=== PATIENT | male | born 1970 | race Caucasian/White ===

== ENCOUNTER 2020-09-16 08:26 | Outpatient (REF) | payer OTHER, SELFPAY ==
[2020-09-16 09:59] LABS: MANUAL DIFF FLAG NO
[2020-09-16 10:03] LABS: Eosinophils Absolute Auto 0.3 X10*3/uL (0.0-0.4); Eosinophils Percent Auto 7.1 % (0-4); Hemoglobin 13.6 g/dl (14.0-18.0); Imm Gran Abs Auto 0.01 X10*3/uL (0.00-0.03); Imm Gran Pct Auto 0.2 % (0.0-0.4); Lymphocytes Absolute Auto 1.2 X10*3/uL (1.2-4.9); Lymphocytes Percent Auto 28.5 % (20-40); Mean Corpuscular HGB Conc 33.2 g/dl (31.0-36.0); Mean Corpuscular Hemoglobin 33.2 pg (27.0-33.0); Monocytes Absolute Auto 0.4 X10*3/uL (0.1-1.2); Monocytes Percent Auto 10.6 % (2-11); Neutrophils Absolute Auto 2.1 X10*3/uL (2.0-8.3); Neutrophils Percent Auto 52.6 % (45-73); Platelet Count 343 X10*3/uL (160-400); Red Cell Distribution Width 12.8 % (11.0-16.0); White Blood Count 4.1 X10*3/uL (4.8-10.8)
[2020-09-16 10:34] LABS: Alanine Aminotransferase 20 U/L (0-40); Albumin Level 4.8 g/dL (3.5-5.0); Alkaline Phosphatase 87 U/L (39-117); Anion Gap 13 (12-20); Aspartate Amino Transferase 22 U/L (5-37); Bilirubin Total 0.5 mg/dL (0.0-1.0); Blood Urea Nitrogen 17 mg/dL (9-16); Calcium 9.5 mg/dL (8.4-10.2); Carbon Dioxide 29 mmol/L (22-29); Chloride 103 mmol/L (96-108); Cholesterol 259 mg/dL; Estimated Glomerular Filt Rate > 60; Glucose Fasting 98 mg/dL (60-99); HDL Cholesterol 75 mg/dL; LDL Cholesterol Calculated 163 mg/dl; Potassium 4.7 mmol/l (3.3-5.1); Sodium 140 mmol/L (135-145); Total Protein 7.4 g/dL (6.5-8.0); Triglycerides 109 mg/dL
[2020-09-16 10:58] LABS: Prostate Specific Antigen 0.41 ng/mL (<0.05-4.0)
[2020-09-16 11:06] LABS: Glucose Urine UA NEG (NEG); Leukocyte Esterase Urine NEG (NEG); Nitrite Urine NEG (NEG); PH 6.5 (5.0-8.0); Specific Gravity - Urine 1.025 (1.005-1.025); Urine Blood NEG (NEG); Urine Ketones NEG (NEG); Urine Protein NEG (NEG-TRACE)
[2020-09-16 11:24] LABS: Appearance Urine CLEAR; Color Urine YELLOW
== END 2020-09-16 08:27 | disposition home or self-care (01) ==
LOC: HO.LAB 08:26
PROVIDERS: PCP Internal Medicine; Visit Provider Internal Medicine
DX: Z00.00 Encounter for general adult medical examination without abnormal findings (principal); E78.2 Mixed hyperlipidemia; Z12.5 Encounter for screening for malignant neoplasm of prostate
CPT/HCPCS: 36415; 80053; 80061; 81003; 84153; 85025

== ENCOUNTER 2021-09-30 10:34 | Outpatient (REF) | payer OTHER, SELFPAY ==
[2021-09-30 10:39] LABS: MANUAL DIFF FLAG NO
[2021-09-30 11:03] LABS: Basophils Percent Auto 0.8 % (0-2); Eosinophils Absolute Auto 0.2 X10*3/uL (0.0-0.4); Eosinophils Percent Auto 4.1 % (0-4); Hemoglobin 13.4 g/dl (14.0-18.0); Imm Gran Abs Auto 0.01 X10*3/uL (0.00-0.03); Imm Gran Pct Auto 0.2 % (0.0-0.4); Lymphocytes Absolute Auto 1.2 X10*3/uL (1.2-4.9); Lymphocytes Percent Auto 22.7 % (20-40); Mean Corpuscular HGB Conc 33.5 g/dl (31.0-36.0); Mean Corpuscular Hemoglobin 33.6 pg (27.0-33.0); Mean Corpuscular Volume 100.3 fL (80.0-98.0); Mean Platelet Volume 10.3 fL (9.4-12.4); Monocytes Absolute Auto 0.5 X10*3/uL (0.1-1.2); Monocytes Percent Auto 9.9 % (2-11); Neutrophils Absolute Auto 3.3 x10*3/uL (2.0-8.3); Neutrophils Percent Auto 62.3 % (45-73); Platelet Count 309 X10*3/uL (160-400); Red Blood Count 3.99 X10*6/uL (4.60-5.80); Red Cell Distribution Width 12.9 % (11.0-16.0); White Blood Count 5.3 X10*3/uL (4.8-10.8)
[2021-09-30 11:07] LABS: Appearance Urine CLEAR; Color Urine YELLOW; Glucose Urine UA NEG (NEG); Leukocyte Esterase Urine NEG (NEG); Nitrite Urine NEG (NEG); Specific Gravity - Urine 1.025 (1.005-1.025); Urine Blood TRACE (NEG); Urine Ketones NEG (NEG); Urine Protein NEG (NEG-TRACE)
[2021-09-30 11:18] LABS: RBC Urine 0-2 /HPF (0); Uric Acid Crystals Urine TRACE /LPF; WBC Urine 0 /HPF (0-4)
[2021-09-30 11:40] LABS: Alanine Aminotransferase 19 U/L (0-40); Albumin Level 4.4 g/dL (3.5-5.0); Alkaline Phosphatase 83 U/L (39-117); Anion Gap 12 (12-20); Aspartate Amino Transferase 25 U/L (5-37); Bilirubin Total 0.3 mg/dL (0.0-1.0); Blood Urea Nitrogen 17 mg/dL (9-16); Calcium 9.6 mg/dL (8.4-10.2); Carbon Dioxide 26 mmol/L (22-29); Chloride 107 mmol/L (96-108); Cholesterol 228 mg/dL; Estimated Glomerular Filt Rate > 60; Glucose Fasting 96 mg/dL (60-99); HDL Cholesterol 68 mg/dL; LDL Cholesterol Calculated 136 mg/dl; Potassium 4.7 mmol/L (3.3-5.1); Sodium 140 mmol/L (135-145); Total Protein 7.1 g/dL (6.5-8.0); Triglycerides 122 mg/dL
[2021-09-30 12:18] LABS: PSA,Total (Free>4and<10) 0.36 ng/mL (0.00-4.00)
== END 2021-09-30 10:35 | disposition home or self-care (01) ==
LOC: HO.LNP 10:34
PROVIDERS: Visit Provider Internal Medicine
DX: Z00.00 Encounter for general adult medical examination without abnormal findings (principal); Z12.5 Encounter for screening for malignant neoplasm of prostate; E78.2 Mixed hyperlipidemia
CPT/HCPCS: 80053; 80061; 81001; 81003; 84153; 85025

== ENCOUNTER 2021-10-09 08:39 | Outpatient (REF) | payer OTHER, SELFPAY ==
--- NOTE | ~2021-10-09 | XR_ITS ---
EXAMINATION: XR FOOT, LEFT CLINICAL INFORMATION: Pain. COMPARISON: Left foot 05/04/2008 TECHNIQUE: AP, lateral, and oblique views of the left foot. FINDINGS: There is a intertarsal fusion with multiple screws traversing the tarsal bones. This is a new finding compared to previous exam 05/04/2008. The ankle mortise, subtalar joint, tarsonavicular and navicular distal tarsal joint space is maintained normal. A small retrocalcaneal enthesophyte is seen. No abnormal joint effusion. XR/XR foot LT min 3V IMPRESSION: New intertarsal fusion with multiple (7) screws. Small retrocalcaneal and calcaneal heel enthesophyte.
== END 2021-10-09 08:40 | disposition home or self-care (01) ==
LOC: HO.XRAY 08:39
PROVIDERS: PCP Internal Medicine; Visit Provider Internal Medicine
DX: M79.672 Pain in left foot (principal)
CPT/HCPCS: 73630

== ENCOUNTER 2022-09-29 11:28 | Outpatient (REF) | payer OTHER, SELFPAY ==
[2022-09-29 11:31] LABS: MANUAL DIFF FLAG NO
[2022-09-29 12:03] LABS: Basophils Percent Auto 0.8 % (0-2); Eosinophils Absolute Auto 0.2 X10*3/uL (0.0-0.4); Eosinophils Percent Auto 4.1 % (0-4); Hematocrit 38.6 % (42.0-52.0); Imm Gran Abs Auto 0.03 X10*3/uL (0.00-0.03); Imm Gran Pct Auto 0.6 % (0.0-0.4); Lymphocytes Absolute Auto 1.1 X10*3/uL (1.2-4.9); Lymphocytes Percent Auto 21.1 % (20-40); Mean Corpuscular HGB Conc 33.7 g/dl (31.0-36.0); Mean Corpuscular Hemoglobin 33.7 pg (27.0-33.0); Mean Platelet Volume 10.5 fL (9.4-12.4); Monocytes Absolute Auto 0.6 X10*3/uL (0.1-1.2); Monocytes Percent Auto 11.1 % (2-11); Neutrophils Absolute Auto 3.3 x10*3/uL (2.0-8.3); Neutrophils Percent Auto 62.3 % (45-73); Platelet Count 315 X10*3/uL (160-400); Red Blood Count 3.86 X10*6/uL (4.60-5.80); White Blood Count 5.3 X10*3/uL (4.8-10.8)
[2022-09-29 12:11] LABS: Appearance Urine Clear; Color Urine Yellow; Glucose Urine UA Negative (Negative); Leukocyte Esterase Urine Negative (Negative); Nitrite Urine Negative (Negative); PH 5.5 (5.0-9.0); Specific Gravity - Urine 1.025 (1.005-1.025); Urine Blood Negative (Negative); Urine Ketones Negative (Negative); Urine Protein Negative (Neg-Trace)
[2022-09-29 12:34] LABS: Alanine Aminotransferase 26 U/L (0-40); Albumin Level 4.5 g/dL (3.5-5.0); Alkaline Phosphatase 87 U/L (39-117); Anion Gap 12 (12-20); Aspartate Amino Transferase 32 U/L (5-37); Bilirubin Total 0.3 mg/dL (0.0-1.0); Blood Urea Nitrogen 15 mg/dL (9-16); Calcium 9.6 mg/dL (8.4-10.2); Carbon Dioxide 25 mmol/L (22-29); Chloride 106 mmol/L (96-108); Cholesterol 232 mg/dL; Estimated Glomerular Filt Rate > 60; Glucose Fasting 98 mg/dL (60-99); HDL Cholesterol 74 mg/dL; LDL Cholesterol Calculated 133 mg/dl; PSA,Total (Free>4and<10) 0.59 ng/mL (0.00-4.00); Potassium 4.3 mmol/L (3.3-5.1); Sodium 139 mmol/L (135-145); Total Protein 6.9 g/dL (6.5-8.0); Triglycerides 125 mg/dL
== END 2022-09-29 11:29 | disposition home or self-care (01) ==
LOC: HO.LNP 11:28
PROVIDERS: Visit Provider Internal Medicine
DX: Z00.00 Encounter for general adult medical examination without abnormal findings (principal); Z12.5 Encounter for screening for malignant neoplasm of prostate; E78.2 Mixed hyperlipidemia
CPT/HCPCS: 80053; 80061; 81003; 84153; 85025

== ENCOUNTER 2023-09-30 10:57 | Outpatient (REF) | payer OTHER, SELFPAY ==
[2023-09-30 11:01] LABS: MANUAL DIFF FLAG NO
[2023-09-30 11:31] LABS: Basophils Absolute Auto 0.1 X10*3/uL (0.0-0.2); Basophils Percent Auto 1.1 % (0-2); Eosinophils Absolute Auto 0.2 X10*3/uL (0.0-0.4); Eosinophils Percent Auto 3.4 % (0-4); Hematocrit 41.3 % (42.0-52.0); Hemoglobin 13.8 g/dl (14.0-18.0); Imm Gran Abs Auto 0.01 X10*3/uL (0.00-0.03); Imm Gran Pct Auto 0.2 % (0.0-0.4); Lymphocytes Absolute Auto 1.4 X10*3/uL (1.2-4.9); Lymphocytes Percent Auto 26.5 % (20-40); Mean Corpuscular HGB Conc 33.4 g/dl (31.0-36.0); Mean Corpuscular Hemoglobin 34.1 pg (27.0-33.0); Mean Platelet Volume 10.5 fL (9.4-12.4); Monocytes Absolute Auto 0.6 X10*3/uL (0.1-1.2); Monocytes Percent Auto 11.4 % (2-11); Neutrophils Absolute Auto 3.1 x10*3/uL (2.0-8.3); Neutrophils Percent Auto 57.4 % (45-73); Platelet Count 291 X10*3/uL (160-400); Red Blood Count 4.05 X10*6/uL (4.60-5.80); White Blood Count 5.3 X10*3/uL (4.8-10.8)
[2023-09-30 11:37] LABS: Appearance Urine Clear; Color Urine Yellow; Glucose Urine UA Negative (Negative); Leukocyte Esterase Urine Negative (Negative); Nitrite Urine Negative (Negative); PH 5.5 (5.0-9.0); Specific Gravity - Urine >= 1.030 (1.005-1.025); UMIC TRIGGER UACC YES; Urine Blood Negative (Negative); Urine Ketones Negative (Negative); Urine Protein 30 (1+) mg/dL (Neg-Trace)
[2023-09-30 11:42] LABS: Alanine Aminotransferase 22 U/L (0-40); Albumin Level 4.7 g/dL (3.5-5.0); Alkaline Phosphatase 64 U/L (39-117); Anion Gap 12 (12-20); Aspartate Amino Transferase 29 U/L (5-37); Bilirubin Total 0.4 mg/dL (0.0-1.0); Blood Urea Nitrogen 17 mg/dL (9-16); Calcium 9.7 mg/dL (8.4-10.2); Carbon Dioxide 29 mmol/L (22-29); Chloride 102 mmol/L (96-108); Cholesterol 283 mg/dL (<200); Estimated Glomerular Filt Rate > 60; Glucose Fasting 86 mg/dL (60-99); HDL Cholesterol 67 mg/dL (>40); LDL Cholesterol Calculated 176 mg/dL (<100); Potassium 4.4 mmol/L (3.3-5.1); Sodium 139 mmol/L (135-145); Total Protein 7.7 g/dL (6.5-8.0); Triglycerides 204 mg/dL (<150)
[2023-09-30 11:43] LABS: Bacteria Urine None Seen (None Seen); Hyaline Casts Urine 0-2 /LPF (0-2); RBC Urine 0-2 /HPF (0-2); Squamous Epithelial Cell Urine 0-2 /HPF (0-2); WBC Urine 0-5 /HPF (0-5)
[2023-09-30 11:59] LABS: Prostate Specific Antigen 0.35 ng/mL (<0.05-4.0)
== END 2023-09-30 10:58 | disposition home or self-care (01) ==
LOC: HO.LNP 10:57
PROVIDERS: Visit Provider Internal Medicine
DX: Z00.00 Encounter for general adult medical examination without abnormal findings (principal); Z12.5 Encounter for screening for malignant neoplasm of prostate; E78.2 Mixed hyperlipidemia
CPT/HCPCS: 80053; 80061; 81001; 84153; 85025

== ENCOUNTER 2023-12-06 11:24 | Outpatient (REF) | payer OTHER, SELFPAY ==
[2023-12-06 12:29] LABS: TSH reflex Free T4 22.56 uIU/mL (0.32-4.0)
[2023-12-06 13:03] LABS: Free T4 (Free Thyroxine) 0.61 ng/dL (0.71-1.85)
== END 2023-12-06 11:25 | disposition home or self-care (01) ==
LOC: HO.LNP 11:24
PROVIDERS: Visit Provider Internal Medicine
DX: E03.9 Hypothyroidism, unspecified (principal)
CPT/HCPCS: 84439; 84443

== ENCOUNTER 2024-01-06 11:11 | Outpatient (REF) | payer OTHER, SELFPAY ==
[2024-01-06 12:23] LABS: Free T4 (Free Thyroxine) 0.74 ng/dL (0.71-1.85)
== END 2024-01-06 11:12 | disposition home or self-care (01) ==
LOC: HO.LNP 11:11
PROVIDERS: Visit Provider Internal Medicine
DX: E03.9 Hypothyroidism, unspecified (principal)
CPT/HCPCS: 84439; 84443

== ENCOUNTER 2024-02-11 11:35 | Outpatient (REF) | payer OTHER, SELFPAY ==
[2024-02-11 14:02] LABS: TSH reflex Free T4 7.32 uIU/mL (0.32-4.0)
[2024-02-11 14:35] LABS: Free T4 (Free Thyroxine) 0.96 ng/dL (0.71-1.85)
== END 2024-02-11 11:36 | disposition home or self-care (01) ==
LOC: HO.LNP 11:35
PROVIDERS: Visit Provider Internal Medicine
DX: E03.9 Hypothyroidism, unspecified (principal)
CPT/HCPCS: 84439; 84443

== ENCOUNTER 2024-03-20 11:13 | Outpatient (REF) | payer OTHER, SELFPAY ==
[2024-03-20 12:16] LABS: TSH reflex Free T4 1.72 uIU/mL (0.32-4.0)
== END 2024-03-20 11:14 | disposition home or self-care (01) ==
LOC: HO.LNP 11:13
PROVIDERS: Visit Provider Internal Medicine
DX: E03.9 Hypothyroidism, unspecified (principal)
CPT/HCPCS: 84443

== ENCOUNTER 2024-04-10 11:07 | Outpatient (REF) | payer OTHER, SELFPAY ==
[2024-04-10 12:09] LABS: Cholesterol 212 mg/dL (<200); HDL Cholesterol 72 mg/dL (>40); LDL Cholesterol Calculated 114 mg/dL (<100); Triglycerides 134 mg/dL (<150)
== END 2024-04-10 11:08 | disposition home or self-care (01) ==
LOC: HO.LNP 11:07
PROVIDERS: Visit Provider Internal Medicine
DX: E78.2 Mixed hyperlipidemia (principal)
CPT/HCPCS: 80061

== ENCOUNTER 2024-09-17 00:50 | Emergency (ER) | payer OTHER, SELFPAY ==
--- NOTE | 2024-09-17 | ECG_ITS ---
Test Reason : FALL Blood Pressure : */* mmHG Vent. Rate : 83 BPM Atrial Rate : 83 BPM P-R Int : 148 ms QRS Dur : 90 ms QT Int : 360 ms P-R-T Axes : 36 64 24 degrees QTcB Int : 423 ms Normal sinus rhythm Normal ECG When compared with ECG of 04-May-2008 03:47, No significant change was found Referred By: Generic ED Physician Electronically Signed By: JOSE SNELL
--- NOTE | ~2024-09-17 | CT_ITS ---
CLINICAL HISTORY: fall with + head strike CT head without contrast Comparison: Head CT from 05/04/2008 Findings: Gas is associated with right frontal scalp defect. Soft tissue swelling hematoma predominately in the right frontal convexity. No underlying acute frontal bone fracture. Mild right periorbital soft tissue swelling is preseptal. No acute intracranial hemorrhage. No midline shift or hydrocephalus. Mild volume loss is generalized and mildly greater expected for age. No large arterial territorial infarction by CT. Mild white matter lesions as can be associated with small-vessel ischemic disease. Air-fluid levels of the paranasal sinuses including partially imaged maxillary sinuses. Trace mastoid effusions. IMPRESSION: 1. Soft tissue swelling, scalp hematoma, scalp defect, including of the right frontal convexity. No acute frontal bone fracture. 2. No acute intracranial hemorrhage. 3. Mild volume loss is generalized and greater than expected for age. 4. Air-fluid levels of the imaged maxillary sinuses as can be associated with sinusitis. Please refer to separate report for CT of the face. This document has been electronically signed by: Raji Perea MD on 09/17/2024 02:12:44
--- NOTE | ~2024-09-17 | CT_ITS ---
CLINICAL HISTORY: fall with + head strike CT cervical spine without contrast Comparison: CT of the cervical spine from 05/04/2008 Findings: Ligament calcifications are multifocal with likely old osteophyte fractures including anterior inferior aspect of the C3 and C4, without significant change from 2008. New anterior inferior osteophyte fracture appears acute C6. Otherwise, no acute fracture cervical spine. Marked reversal cervical lordosis. Mild anterolisthesis at C2-C3. Facet arthropathy is multifocal. Disc osteophyte complexes with mild spinal canal stenosis from C4-C5 to C6-C7. Multilevel [id number]-sy-[id number] foraminal narrowing including C3-C4 to C6-C7. Sclerosis of the T1 appears non aggressive and likely due to bone island. Mild soft tissue swelling anterior to C6. Subcutaneous edema is noted. Mild scarring and motion of the imaged lung apices. IMPRESSION: 1. Small osteophyte fracture at anterior inferior margin of the C6. Otherwise, no acute fracture of the cervical spine. 2. Reversal cervical lordosis. 3. Multifocal spinal stenosis at degenerative changes markedly greater than expected for age; with multifocal spinal stenosis, including foraminal narrowing. This document has been electronically signed by: Raji Perea MD on 09/17/2024 02:06:10
--- NOTE | ~2024-09-17 | CT_ITS ---
CLINICAL HISTORY: fall with + head strike CT maxillofacial without contrast Comparison: Head CT from same day. Findings: Right-sided periorbital soft tissue swelling is mild and preseptal. No acute intraconal stranding within either orbit in this noncontrast study. Air-fluid levels of the bilateral maxillary sinuses with a displaced acute wall fracture. Mild medial wall fracture of the right orbit appears old. Mucosal thickening of the paranasal sinuses is multifocal. No displaced mandible fracture. No dislocation of the imaged temporomandibular joints. Trace bilateral mastoid effusions. Please refer to CT of the head for included intracranial volume loss. Please refer to CT of the cervical spine for included C6 osteophyte fracture. IMPRESSION: 1. Air-fluid levels of the maxillary sinuses as can be associated with sinusitis. 2. Right-sided periorbital soft tissue swelling appears preseptal. This document has been electronically signed by: Raji Perea MD on 09/17/2024 02:13:58
[2024-09-17 00:56] VITALS: BP 135/85; PULSE 98; RESP 20; TEMP 36.8; O2SAT 98; BMI 25.1
[2024-09-17 02:18] LABS: MANUAL DIFF FLAG NO
[2024-09-17 02:20] LABS: Basophils Percent Auto 0.4 % (0-2); Eosinophils Absolute Auto 0.1 X10*3/uL (0.0-0.4); Eosinophils Percent Auto 0.9 % (0-4); Hematocrit 37.6 % (42.0-52.0); Hemoglobin 13.2 g/dl (14.0-18.0); Imm Gran Abs Auto 0.04 X10*3/uL (0.00-0.03); Imm Gran Pct Auto 0.4 % (0.0-0.4); Lymphocytes Absolute Auto 1.1 X10*3/uL (1.2-4.9); Lymphocytes Percent Auto 10.2 % (20-40); Mean Corpuscular HGB Conc 35.1 g/dl (31.0-36.0); Mean Corpuscular Hemoglobin 33.8 pg (27.0-33.0); Mean Corpuscular Volume 96.2 fL (80.0-98.0); Mean Platelet Volume 9.5 fL (9.4-12.4); Monocytes Absolute Auto 0.7 X10*3/uL (0.1-1.2); Monocytes Percent Auto 6.4 % (2-11); Neutrophils Absolute Auto 9.1 x10*3/uL (2.0-8.3); Neutrophils Percent Auto 81.7 % (45-73); Platelet Count 303 X10*3/uL (160-400); Red Blood Count 3.91 X10*6/uL (4.60-5.80); Red Cell Distribution Width 13.1 % (11.0-16.0); White Blood Count 11.1 X10*3/uL (4.8-10.8)
[2024-09-17 02:34] LABS: Ethanol 255 mg/dL
[2024-09-17 02:35] LABS: INTERNATIONAL NORM RATIO 0.8 (0.9-1.1); Prothrombin Time 9.7 SEC (10.9-12.4)
[2024-09-17 02:36] LABS: Alanine Aminotransferase 37 U/L (0-40); Albumin Level 4.5 g/dL (3.5-5.0); Alkaline Phosphatase 93 U/L (39-117); Anion Gap 15 (12-20); Aspartate Amino Transferase 45 U/L (5-37); Bilirubin Total 0.2 mg/dL (0.0-1.0); Blood Urea Nitrogen 18 mg/dL (9-16); Calcium 9.4 mg/dL (8.4-10.2); Carbon Dioxide 24 mmol/L (22-29); Chloride 111 mmol/L (96-108); Estimated Glomerular Filt Rate > 60; Glucose Random 93 mg/dL (60-115); Potassium 4.1 mmol/L (3.3-5.1); Sodium 146 mmol/L (135-145); Total Protein 7.5 g/dL (6.5-8.0)
[2024-09-17] MEDS: traMADoL HCL 50 MG TABLET PO (03:54)
[2024-09-17 04:08] LABS: Troponin-I High Sensitivity < 2.7 ng/L (<3.5-35.0)
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
[2024-09-17 06:39] VITALS: BP 138/78; PULSE 87; RESP 18; TEMP 36.9; O2SAT 98
[2024-09-17 06:56] VITALS: BP 138/78; PULSE 87; RESP 18; TEMP 36.9; O2SAT 98
[2024-09-17] MEDS: Lidocaine HCl 1%/Epi 1:100,000 10 ML VIAL 30 ML INFILTRATI (07:03)
[2024-09-17] MEDS: Lidocaine HCl 1 % 10 ML VIAL 30 ML INFILTRATI (07:03)
== END 2024-09-17 07:06 | disposition home or self-care (01) ==
PROVIDERS: Emergency Provider Emergency Medicine; PCP Internal Medicine
DX: S01.91XA Laceration without foreign body of unspecified part of head, initial encounter (principal); S61.411A Laceration without foreign body of right hand, initial encounter; R51.9 Headache, unspecified; M54.2 Cervicalgia; W01.10XA Fall on same level from slipping, tripping and stumbling with subsequent striking against unspecified object, initial encounter; Y93.89 Activity, other specified; Y92.89 Other specified places as the place of occurrence of the external cause; Y99.8 Other external cause status; Z79.899 Other long term (current) drug therapy; Z51.81 Encounter for therapeutic drug level monitoring
CPT/HCPCS: 12042; 12054; 36415; 70450; 70486; 72125; 80053; 80307; 84484; 85025; 85610; 93005; 99284; J2003; J2004

== ENCOUNTER → 2024-09-17 01:09 | Outpatient (BNV) | payer OTHER, SELFPAY | PROVIDERS: PCP Internal Medicine; Visit Provider Radiology Neuroradiology | DX: M48.02 Spinal stenosis, cervical region (principal); M50.30 Other cervical disc degeneration, unspecified cervical region; J01.00 Acute maxillary sinusitis, unspecified; H05.221 Edema of right orbit; S00.03XA Contusion of scalp, initial encounter | CPT/HCPCS: 70450; 70486; 72125 ==

== ENCOUNTER → 2024-09-17 03:51 | Outpatient (BNV) | payer OTHER, SELFPAY | PROVIDERS: Emergency Provider Emergency Medicine; PCP Internal Medicine; Visit Provider Internal Medicine | DX: Z03.89 Encounter for observation for other suspected diseases and conditions ruled out (principal) | CPT/HCPCS: 93010 ==

== ENCOUNTER 2024-10-02 07:00 | Outpatient (REF) | payer OTHER, SELFPAY ==
[2024-10-02 10:23] LABS: MANUAL DIFF FLAG NO
[2024-10-02 10:42] LABS: Eosinophils Absolute Auto 0.3 X10*3/uL (0.0-0.4); Eosinophils Percent Auto 7.2 % (0-4); Hematocrit 37.3 % (42.0-52.0); Hemoglobin 12.4 g/dl (14.0-18.0); Imm Gran Abs Auto 0.01 X10*3/uL (0.00-0.03); Imm Gran Pct Auto 0.3 % (0.0-0.4); Lymphocytes Absolute Auto 1.3 X10*3/uL (1.2-4.9); Lymphocytes Percent Auto 33.5 % (20-40); Mean Corpuscular HGB Conc 33.2 g/dl (31.0-36.0); Mean Corpuscular Hemoglobin 33.4 pg (27.0-33.0); Mean Corpuscular Volume 100.5 fL (80.0-98.0); Mean Platelet Volume 10.1 fL (9.4-12.4); Monocytes Absolute Auto 0.5 X10*3/uL (0.1-1.2); Monocytes Percent Auto 11.9 % (2-11); Neutrophils Absolute Auto 1.8 x10*3/uL (2.0-8.3); Neutrophils Percent Auto 46.1 % (45-73); Platelet Count 361 X10*3/uL (160-400); Red Blood Count 3.71 X10*6/uL (4.60-5.80); Red Cell Distribution Width 13.4 % (11.0-16.0); White Blood Count 3.9 X10*3/uL (4.8-10.8)
[2024-10-02 10:44] LABS: Appearance Urine Clear; Color Urine Yellow; Glucose Urine UA Negative (Negative); Leukocyte Esterase Urine Negative (Negative); Nitrite Urine Negative (Negative); PH 5.5 (5.0-9.0); Specific Gravity - Urine 1.025 (1.005-1.025); Urine Blood Negative (Negative); Urine Ketones Trace mg/dL (Negative); Urine Protein Negative (Neg-Trace)
[2024-10-02 11:18] LABS: Alanine Aminotransferase 26 U/L (0-40); Albumin Level 4.2 g/dL (3.5-5.0); Alkaline Phosphatase 107 U/L (39-117); Anion Gap 9 (12-20); Aspartate Amino Transferase 28 U/L (5-37); Bilirubin Total 0.2 mg/dL (0.0-1.0); Blood Urea Nitrogen 14 mg/dL (9-16); Calcium 9.6 mg/dL (8.4-10.2); Carbon Dioxide 24 mmol/L (22-29); Chloride 111 mmol/L (96-108); Cholesterol 212 mg/dL (<200); Estimated Glomerular Filt Rate > 60; Glucose Fasting 84 mg/dL (60-99); HDL Cholesterol 62 mg/dL (>40); LDL Cholesterol Calculated 125 mg/dL (<100); Potassium 4.4 mmol/L (3.3-5.1); Sodium 140 mmol/L (135-145); TSH reflex Free T4 5.36 uIU/mL (0.32-4.0); Total Protein 7.2 g/dL (6.5-8.0); Triglycerides 127 mg/dL (<150)
[2024-10-02 11:20] LABS: PSA,Total (Free>4and<10) 0.43 ng/mL (0.00-4.00)
--- OUTSIDE RECORDS SUMMARY | 2024-10-02 14:58 | XMS_ITS ---
Author Organization García Mera MD Address [address] [place], [place] [id number] Care Team Providers Care Optical Effects Camera Operator Name Role Phone García Mera Primary Care Provider [phone] Results Component Value Reference Range Notes Complete Blood Count Auto Di ff (Not yet reviewed by provider) Interpretation: Performing Lab:[facility], [address] [place] [id number] Notes/Report: White Blood Count 3.9 4.8-10.8 X10*3/uL Red Blood Count 3.71 4.60-5.80 X10*6/uL Hemoglobin 12.4 14.0-18.0 g/dl Hematocrit 37.3 42.0-52.0 % Mean Corpuscular Volume 100.5 80.0-98.0 fL Mean Corpuscular Hemoglobin 33.4 27.0-33.0 pg Mean Corpuscular HGB Conc 33.2 31.0-36.0 g/dl Red Cell Distribution Width 13.4 11.0-16.0 % Platelet Count 361 160-400 X10*3/uL Mean Platelet Volume 10.1 9.4-12.4 fL Neutrophils Percent Auto 46.1 45-73 % Imm Gran Pct Auto 0.3 0.0-0.4 % Lymphocytes Percent Auto 33.5 20-40 % Monocytes Percent Auto 11.9 2-11 % Eosinophils Percent Auto 7.2 0-4 % Basophils Percent Auto 1.0 0-2 % NRBC Pct Auto 0.0 0.0-0.2 /100WBC Neutrophils Absolute Auto 1.8 2.0-8.3 x10*3/u L Imm Gran Abs Auto 0.01 0.00-0.03 X10*3/uL Lymphocytes Absolute Auto 1.3 1.2-4.9 X10*3/u L Monocytes Absolute Auto 0.5 0.1-1.2 X10*3/uL Eosinophils Absolute Auto 0.3 0.0-0.4 X10*3/u L Basophils Absolute Auto 0.0 0.0-0.2 X10*3/uL NRBC Abs Auto 0.000 0.0-0.012 X10*3/uL Comprehensive [place]. Panel Fa st (Not yet reviewed by provider) Interpretation: Performing Lab:[facility], [address] [place] [phone] Notes/Report: Sodium 140 135-145 mmol/L Potassium 4.4 3.3-5.1 mmol/L Chloride 111 96-108 mmol/L Carbon Dioxide 24 22-29 mmol/L Anion Gap 9 12-20 Blood Urea Nitrogen 14 9-16 mg/dL Creatinine 0.96 0.5-1.4 mg/dL Estimated Glomerular Filt Rate > 60 Chronic Kidney Disease: Estimated GFR < 60 mL/min/1.73m2 Severe Kidney Disease: Estimated GFR < 15 mL/min/1.73m2 Glucose Fasting 84 60-99 mg/dL Calcium 9.6 8.4-10.2 mg/dL Bilirubin Total 0.2 0.0-1.0 mg/dL Aspartate Amino Transferase 28 5-37 U/L Alanine Aminotransferase 26 0-40 U/L Total Protein 7.2 6.5-8.0 g/dL Albumin Level 4.2 3.5-5.0 g/dL Alkaline Phosphatase 107 39-117 U/L Lipid Panel (Not yet review ed by provider) Interpretation: Performing Lab:[facility], [address] [place] [phone] Notes/Report: Triglycerides 127 <150 mg/dL Desirable Triglyceride: less than 150 mg/dL Borderline High Triglyceride 150-199 mg/dL High Triglyceride: 200-499 mg/dL Very High Triglyceride: greater than or equal to 5OO mg/dL Cholesterol 212 <200 mg/dL Desirable Cholesterol: less than 200 mg/dL Borderline High Cholesterol: 200-239 mg/dL High Cholesterol: greater than 239 mg/dL LDL Cholesterol Calculated 125 <100 mg/dL Desirable LDL: less than 100 mg/dL Near Optimal/Above Optimal LDL: 110-129 mg/dL Borderline High LDL: 130-159 mg/dL High LDL: 160-189 mg/dL Very High LDL: greater than or equal to 190 mg/dL HDL Cholesterol 62 >40 mg/dL Desirable HDL: greater than 40 mg/dL Note: This HDL assay may give artificially low results in patients with liver disease. PSA,Total (Free>4and<10) (No t yet reviewed by provider) Interpretation: Performing Lab:[address] [phone] Notes/Report: PSA,Total (Free>4and<10) 0.43 0.00-4.00 ng/mL A Free PSA was not performed: The percentage of Free PSA can be used to enhance the differentiation of prostate cancer from benign prostatic disease in subjects whose PSA levels are between 4.0 and 10.0 ng/mL. For subjects whose PSA levels are below 4.0 or above 10.0 ng/mL, the risk of prostate cancer is determined on the basis of the PSA alone. Therefore the % Free PSA is recommended only for those subjects whose PSA levels are between 4.0 and 10.0 ng/mL. PSA methodology: Hannah Alinity i Chemiluminescent Microparticle Immunoassay (CMIA) TSH reflex Free T4 (Not yet reviewed by provider) Interpretation: Performing Lab:[address] [phone] Notes/Report: TSH reflex Free T4 5.36 0.32-4.0 uIU/mL REASON FOR VISIT FASTING LABS Encounters Encounter Location Date Provider Diagnosis García Mera MD [address] [place] [address] [address] [place], [place] [phone] 10/02/2024 García Mera Blood tests for routine general physical examination Z00.00 ; Mixed hyperlipidemia E78.2 and Acquired hypothyroidism E03.9 Assessments Encounter Date Diagnosis (ICD Code) Assessment Notes Treatment Notes Treatment Clinical Notes Section Notes 10/02/2024 Blood tests for routine general physical examination (ICD-10 - Z00.00) 10/02/2024 Mixed hyperlipidemia (ICD-10 - E78.2) 10/02/2024 Acquired hypothyroidism (ICD-10 - E03.9) Plan Of Treatment Pending Test Test Name Order Date Complete Blood Count Auto Diff 5 Comprehensive [place]. Panel Fast Lipid Panel 10/02/2024 PSA,Total (Free>4and<10) 10/02/2024 TSH reflex Free T4 10/02/2024 UA ClnCatch+Micro w/rflx Cult 10/02/2024 Next Appt Details Provider Name:García Harry ier, 10/09/2024 10:30:00 AM, [address], [address], [place], [place], [phone], Progress Notes * Prakash SHEEHANDOB:[birth year] (53 yo M)Acc No.[id number]:10/02/2024 Progress Note Patient:?Prakash SHEEHAN Provider:?García Mera MD :1970???Age:53 Y???Sex:Male Jamar e:10/02/2024 Address:[address] [place], [place] [id number] Subjective: * Chief Complaints: * ???1. FASTING LABS. * Medical History:? Objective: * Vitals:? Assessment: * Assessment: 1.?Blood tests for routine g eneral physical examination - Z00.00 (Primary)???2.?Mixed hyperlipidemia - E78.2???3.?Acquired hypothyroidism - E03.9??? Plan: * Treatment: 2.?Mixed hyperlipidemia?LAB: Complete Blood Count Auto Diff (Collection Date & Time - 10/02/2024 07:00 AM) ?LAB: Comprehensive [place]. Panel Fast (Collection Date & Time - 10/02/2024 07:00 AM) ?LAB: Lipid Panel (Collection Date & Time - 10/02/2024 07:00 AM) ?LAB: PSA,Total (Free>4and<10) (Collection Date & Time - 10/02/2024 07:00 AM) ?LAB: TSH reflex Free T4 (Collection Date & Time - 10/02/2024 07:00 AM) ?LAB: UA ClnCatch+Micro w/rflx Cult 3.?Acquired hypothyroidism?LAB: Complete Blood Count Auto Diff (Collection Date & Time - 10/02/2024 07:00 AM) ?LAB: Comprehensive [place]. Panel Fast (Collection Date & Time - 10/02/2024 07:00 AM) ?LAB: Lipid Panel (Collection Date & Time - 10/02/2024 07:00 AM) ?LAB: PSA,Total (Free>4and<10) (Collection Date & Time - 10/02/2024 07:00 AM) ?LAB: TSH reflex Free T4 (Collection Date & Time - 10/02/2024 07:00 AM) ?LAB: UA ClnCatch+Micro w/rflx Cult * Procedure Codes:?45898 VENIP UNCT, ROUTINE* * * The named appointment provid er may or may not be the originator of this progress note, and it is not deemed complete until electronically signed by the appointment provider. Sign off status: Pending * Provider:?García Mera MD Date:?0 10/02/2024 Generated for Rema schwartz/Marisel/eTransmitting on:?10/02/2024 02:58 PM EST
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
--- OUTSIDE RECORDS SUMMARY | 2024-10-02 14:58 | XMS_ITS | Patient Health Record ---
Author Organization García Mera MD Address [address] [place], [place] [id number] Care Team Providers Care Principal Technologist Name Role Phone García Mera Primary Care Provider [phone] Allergies No Known Allergies Results Component Value Reference Range Notes TSH reflex Free T4 Reviewed date:12/09/2023 10:25:47 AM Interpretation:eduardo car 12-09-2023 Performing Lab:[facility], [address] [place] [phone] Notes/Report: TSH reflex Free T4 22.56 0.32-4.0 uIU/mL TSH reflex Free T4 Reviewed date:01/13/2024 10:48:38 AM Interpretation:eduardo car 01-13-2024 Performing Lab:[facility], [address] [place] [phone] Notes/Report: TSH reflex Free T4 11.70 0.32-4.0 uIU/mL TSH reflex Free T4 Reviewed date:02/18/2024 12:27:37 PM Interpretation:PREM 02/17 Performing Lab:[facility], [address] [place] [phone] Notes/Report: TSH reflex Free T4 7.32 0.32-4.0 uIU/mL TSH reflex Free T4 Reviewed date:03/20/2024 12:38:32 PM Interpretation: Performing Lab:[facility], [address] [place] [phone] Notes/Report: TSH reflex Free T4 1.72 0.32-4.0 uIU/mL Lipid Panel Reviewed date:04/10/2024 02:06:43 PM Interpretation: Performing Lab:[facility], [address] [place] [phone] Notes/Report: Triglycerides 134 <150 mg/dL Desirable Triglyceride: less than 150 mg/dL Borderline High Triglyceride 150-199 mg/dL High Triglyceride: 200-499 mg/dL Very High Triglyceride: greater than or equal to 5OO mg/dL Cholesterol 212 <200 mg/dL Desirable Cholesterol: less than 200 mg/dL Borderline High Cholesterol: 200-239 mg/dL High Cholesterol: greater than 239 mg/dL LDL Cholesterol Calculated 114 <100 mg/dL Desirable LDL: less than 100 mg/dL Near Optimal/Above Optimal LDL: 110-129 mg/dL Borderline High LDL: 130-159 mg/dL High LDL: 160-189 mg/dL Very High LDL: greater than or equal to 190 mg/dL HDL Cholesterol 72 >40 mg/dL Desirable HDL: greater than 40 mg/dL Note: This HDL assay may give artificially low results in patients with liver disease. Complete Blood Count Auto Di ff (Not yet reviewed by provider) Interpretation: Performing Lab:[facility], [address] [place] [phone] Notes/Report: White Blood Count 3.9 4.8-10.8 X10*3/uL [...] 0.0-0.2 /100WBC Neutrophils Absolute Auto 1.8 2.0-8.3 x10*3/uL Imm Gran Abs Auto 0.01 0.00-0.03 X10*3/uL Lymphocytes Absolute Auto 1.3 1.2-4.9 X10*3/uL Monocytes Absolute Auto 0.5 0.1-1.2 X10*3/uL Eosinophils Absolute Auto 0.3 0.0-0.4 X10*3/uL Basophils Absolute Auto 0.0 0.0-0.2 X10*3/uL NRBC Abs Auto 0.000 0.0-0.012 X10*3/uL Comprehensive [place]. Panel Fa st (Not yet reviewed by provider) Interpretation: Performing Lab:[facility], [address] [place] [address] Notes/Report: Sodium 140 135-145 mmol/L Potassium 4.4 [...] 107 39-117 U/L Lipid Panel (Not yet reviewe d by provider) Interpretation: Performing Lab:[facility], [address] [place] [phone] Notes/Report: Triglycerides 127 <150 mg/dL Desirable Triglyceride: [...] t yet reviewed by provider) Interpretation: Performing Lab:[address] [phone] Notes/Report: PSA,Total (Free>4and<10) 0.43 0.00-4.00 ng/mL A [...] (Not yet reviewed by provider) Interpretation: Performing Lab:[address] [phone] Notes/Report: TSH reflex Free T4 5.36 0.32-4.0 uIU/mL Occult Blood, Stool, Guaiac Reviewed date:10/07/2023 11:40:05 AM Interpretation:Negative Performing Lab: Notes/Report: Negative Occult Blood, Stool, Guaiac Neg Free T4 (Free Thyroxine) Reviewed date:12/06/2023 01:56:17 PM Interpretation: Performing Lab:[address] [phone] Notes/Report: Free T4 (Free Thyroxine) 0.61 0.71-1.85 ng/dL Emperatriz Gold Reviewed date:12/06/2023 12:27:16 PM Interpretation: Performing Lab:[address] [phone] Notes/Report: Emperatriz Busby See Note Specimen held untested for 24 hours; Call to request Chemistry testing. Free T4 (Free Thyroxine) Reviewed date:01/06/2024 12:46:01 PM Interpretation: Performing Lab:[facility], [address] [place] [phone] Notes/Report: Free T4 (Free Thyroxine) 0.74 0.71-1.85 ng/dL Emperatriz Busby Reviewed date:01/06/2024 12:33:47 PM Interpretation: Performing Lab:[facility], [address] [place] [phone] Notes/Report: Emperatriz Busby See Note Specimen held untested for 24 hours; Call to request Chemistry testing. Free T4 (Free Thyroxine) Reviewed date:02/11/2024 03:45:02 PM Interpretation: Performing Lab:[facility], [address] [place] [phone] Notes/Report: Free T4 (Free Thyroxine) 0.96 0.71-1.85 ng/dL Emperatriz Busby Reviewed date:02/11/2024 12:27:36 PM Interpretation: Performing Lab:[facility], [address] [place] [phone] Notes/Report: Emperatriz Busby See Note Specimen held untested for 24 hours; Call to request Chemistry testing. Emperatriz Busby Reviewed date:03/20/2024 12:39:29 PM Interpretation: Performing Lab:[facility], [address] [place] [phone] Notes/Report: Emperatriz Busby See Note Specimen held untested for 24 hours; Call to request Chemistry testing. Complete Blood Count Auto Di ff Reviewed date:09/17/2024 03:04:18 PM Interpretation: Performing Lab:[facility], [address] [place] [phone] Notes/Report: White Blood Count 11.1 4.8-10.8 X10*3/uL Red Blood Count 3.91 4.60-5.80 X10*6/uL Hemoglobin 13.2 14.0-18.0 g/dl Hematocrit 37.6 42.0-52.0 % Mean Corpuscular Volume 96.2 80.0-98.0 fL Mean Corpuscular Hemoglobin 33.8 27.0-33.0 pg Mean Corpuscular HGB Conc 35.1 31.0-36.0 g/dl Red Cell Distribution Width 13.1 11.0-16.0 % Platelet Count 303 160-400 X10*3/uL Mean Platelet Volume 9.5 9.4-12.4 fL Neutrophils Percent Auto 81.7 45-73 % Imm Gran Pct Auto 0.4 0.0-0.4 % Lymphocytes Percent Auto 10.2 20-40 % Monocytes Percent Auto 6.4 2-11 % Eosinophils Percent Auto 0.9 0-4 % Basophils Percent Auto 0.4 0-2 % NRBC Pct Auto 0.0 0.0-0.2 /100WBC Neutrophils Absolute Auto 9.1 2.0-8.3 x10*3/uL Imm Gran Abs Auto 0.04 0.00-0.03 X10*3/uL Lymphocytes Absolute Auto 1.1 1.2-4.9 X10*3/uL Monocytes Absolute Auto 0.7 0.1-1.2 X10*3/uL Eosinophils Absolute Auto 0.1 0.0-0.4 X10*3/uL Basophils Absolute Auto 0.0 0.0-0.2 X10*3/uL NRBC Abs Auto 0.000 0.0-0.012 X10*3/uL Prothrombin Time INR Reviewed date:09/17/2024 02:59:32 PM Interpretation: Performing Lab:[address] [phone] Notes/Report: Prothrombin Time 9.7 10.9-12.4 SEC INTERNATIONAL NORM RATIO 0.8 0.9-1.1 INTERNATIONAL NORMALIZED RATIO (INR) REFERENCE RANGES Reference Range For patients not on anticoagulant therapy: 0.9 - 1.1 INR ranges for oral anticoagulant therapy: For prevention and treatment of venous thrombosis and pulmonary embolism: 2.0 - 3.0 For acute myocardial infarction with aspirin therapy: 2.0 - 3.0 For acute myocardial infarction without aspirin therapy: 3.0 - 4.0 For patients with mechanical prosthetic heart valves: 2.5 - 3.5 Comprehensive Met. Panel Reviewed date:09/17/2024 03:04:37 PM Interpretation: Performing Lab:[address] [phone] Notes/Report: Sodium 146 135-145 mmol/L Potassium 4.1 3.3-5.1 mmol/L Chloride 111 96-108 mmol/L Carbon Dioxide 24 22-29 mmol/L Anion Gap 15 12-20 Blood Urea Nitrogen 18 9-16 mg/dL Creatinine 0.99 0.5-1.4 mg/dL Creatinine Clr Calc Pharmacy 88.0 eGFR (calculated from the MDRD study equation) and eCrCl (calculated from the Cockcroft-Gault equation) are based on different parameters and may not yield comparable results. If eCrCl result is absurd, please check patient's height/weight. Estimated Glomerular Filt Rate > 60 Chronic Kidney Disease: Estimated GFR < 60 mL/min/1.73m2 Severe Kidney Disease: Estimated GFR < 15 mL/min/1.73m2 Glucose Random 93 60-115 mg/dL Calcium 9.4 8.4-10.2 mg/dL Bilirubin Total 0.2 0.0-1.0 mg/dL Aspartate Amino Transferase 45 5-37 U/L Alanine Aminotransferase 37 0-40 U/L Total Protein 7.5 6.5-8.0 g/dL Albumin Level 4.5 3.5-5.0 g/dL Alkaline Phosphatase 93 39-117 U/L Troponin-I High Sensitivity Reviewed date:09/17/2024 02:56:01 PM Interpretation: Performing Lab:[facility], [address] [place] [phone] Notes/Report: Troponin-I High Sensitivity < 2.7 <3.5-35.0 ng/L The Hannah high sensitivity Troponin-I results should be used in conjunction with other diagnostic information such as ECG, clinical observations and information, and patient symptoms to aid in the diagnosis of [place]. Ethanol Reviewed date:09/17/2024 02:55:52 PM Interpretation: Performing Lab:[facility], [address] [place] [phone] Notes/Report: Ethanol 255 Serum/plasma ethanol results are to be used for medical/treatment purposes only. CT cervical spine wo con Reviewed date:09/17/2024 03:03:44 PM Interpretation: Performing Lab: Notes/Report: [address] [address] [address] Scan Report Signed with Addenda Patient: Prakash Cortes MR#: [id number] : 1970 Acct:[id number] Age/Sex: 53 / M ADM Date: 09/17/24 Loc: HO.ED Attending Dr: Ordering Physician: Generic ED Physician Date of Service: 09/17/24 Procedure(s): CT cervical spine wo IV con Accession Number(s): [id number] cc: García Mera MD; Generic ED Physician Report Number: [id number]: Total DLP = 608.00 mGy-cm ADDENDUM This document has been electronically signed by: Raji Perea MD on 09/17/2024 02:06:10 ADDENDUM: This report was discussed with Magui Garcia MD on Sep 17, 2024 02:11:00 EST. This document has been electronically signed by: Soila Avendano on 09/17/2024 02:11:39 Addendum Dictated By: Raji Perea MD Addendum Signed By: <Electronically signed by Raji Perea MD in OV> 09/17/24211 Addendum Cosigned By: DD/ /30/206 TD/TT: 09/17/2408/30/211 CLINICAL HISTORY: fall with + head strike CT cervical spine without contrast Comparison: CT of the cervical spine from 05/04/2008 Findings: Ligament calcifications are multifocal with likely old osteophyte fractures including anterior inferior aspect of the C3 and C4, without significant change from 2007. New anterior inferior osteophyte fracture appears acute C6. Otherwise, no acute fracture cervical spine. Marked reversal cervical lordosis. Mild anterolisthesis at C2-C3. Facet arthropathy is multifocal. Disc osteophyte complexes with mild spinal canal stenosis from C4-C5 to C6-C7. Multilevel qweilmzh-ft-svrefq foraminal narrowing including C3-C4 to C6-C7. Sclerosis of the T1 appears non aggressive and likely due to bone island. Mild soft tissue swelling anterior to C6. Subcutaneous edema is noted. Mild scarring and motion of the imaged lung apices. IMPRESSION: 1. Small osteophyte fracture at anterior inferior margin of the C6. Otherwise, no acute fracture of the cervical spine. 2. Reversal cervical lordosis. 3. Multifocal spinal stenosis at degenerative changes markedly greater than expected for age; with multifocal spinal stenosis, including foraminal narrowing. This document has been electronically signed by: Raji Perea MD on 09/17/2024 02:06:10 Dictated By: Raji Perea MD Signed By: <Electronically signed by Raji Perea MD in OV> 09/17/24206 DD/ 5 TD/TT: 09/17/24205 Blown Film Extrusion Operator: [address] [address] [address] Scan Report Signed with Addenda Patient: Prakash Cortes MR#: [id number] : 1970 Acct:[id number] Age/Sex: 53 / M ADM Date: 09/17/24 Loc: .ED Attending Dr: Ordering Physician: Generic ED Physician Date of Service: 09/17/24 Procedure(s): CT cer vical spine wo IV con Accession Number(s): [id number] cc: García Mera MD; Generic ED Physician Report Number: [id number]: Total DLP = 608.00 mGy-cm ADDENDUM This document has be en electronically signed by: Raji Perea MD on 09/17/2024 02:06:10 ADDENDUM: This report was disc ussed with Magui Garcia MD on Sep 17, 2024 02:11:00 EST. This document has be en electronically signed by: Soila Avendano on 09/17/2024 02:11:39 Addendum Dictated By : Raji Perea MD Addendum Signed By: <Electronically signed by Raji Perea MD in OV> 09/17/24211 Addendum Cosigned By: DD/ /30/206 TD/TT: 09/17/2408/30/211 CLINICAL HISTORY: fa ll with + head strike CT cervical spine wi thout contrast Comparison: CT of th e cervical spine from 05/04/2008 Findings: Ligament calcificati ons are multifocal with likely old osteophyte fractures including anterior inferior aspect of the C3 and C4, without significant change f rom 2007. New anterior inferior osteophyte fracture appears acute C6. Otherwise, no acute fracture cervical spine. Marked reversal cerv ical lordosis. Mild anterolisthesis at C2-C3. Facet arthropathy is multifocal. Disc osteophyte complexes with mild spinal canal stenosi s from C4-C5 to C6-C7. Multilevel lqscwmzw-yn-jbbxzd foraminal narrowing including C3-C4 to C6-C7. Sclerosis of the T1 appears non aggressive and l ikely due to bone island. Mild soft tissue swe lling anterior to C6. Subcutaneous edema is noted. Mild scarring and mo tion of the imaged lung apices. IMPRESSION: 1. Small osteophyte fracture at anterior inferior margin of the C6. Otherwise, no acute fracture of the cervical spine. 2. Reversal cervical lordosis. 3. Multifocal spinal stenosis at degenerative changes markedly greater than expected for ag e; with multifocal spinal stenosis, including foraminal narrowing. This document has be en electronically signed by: Raji Perea MD on 09/17/2024 02:06:10 Dictated By: Teresa Perea MD Signed By: <Electronically signed by Raji Perea MD in OV> 09/17/24206 DD/ 5 TD/TT: 09/17/24205 Blown Film Extrusion Operator: CT head/brain wo con Reviewed date:09/17/2024 02:59:23 PM Interpretation: Performing Lab: Notes/Report: [address] [address] [address] Scan Report Signed Patient: Prakash Cortes MR#: [id number] : 1970 Acct:[id number] Age/Sex: 53 / M ADM Date: 09/17/24 Loc: HO.ED Attending Dr: Ordering Physician: Generic ED Physician Date of Service: 09/17/24 Procedure(s): CT head/brain wo IV con Accession Number(s): [id number] cc: García Mera MD; Generic ED Physician Report Number: [id number]: Total DLP = 715.00 mGy-cm CLINICAL HISTORY: fall with + head strike CT head without contrast Comparison: Head CT from 05/04/2008 Findings: Gas is associated with right frontal scalp defect. Soft tissue swelling hematoma predominately in the right frontal convexity. No underlying acute frontal bone fracture. Mild right periorbital soft tissue swelling is preseptal. No acute intracranial hemorrhage. No midline shift or hydrocephalus. Mild volume loss is generalized and mildly greater expected for age. No large arterial territorial infarction by CT. Mild white matter lesions as can be associated with small-vessel ischemic disease. Air-fluid levels of the paranasal sinuses including partially imaged maxillary sinuses. Trace mastoid effusions. IMPRESSION: 1. Soft tissue swelling, scalp hematoma, scalp defect, including of the right frontal convexity. No acute frontal bone fracture. 2. No acute intracranial hemorrhage. 3. Mild volume loss is generalized and greater than expected for age. 4. Air-fluid levels of the imaged maxillary sinuses as can be associated with sinusitis. Please refer to separate report for CT of the face. This document has been electronically signed by: Raji Perea MD on 09/17/2024 02:12:44 Dictated By: Raji Perea MD Signed By: <Electronically signed by Raji Perea MD in OV> 09/17/24212 DD/ 1 TD/TT: 09/17/24211 Blown Film Extrusion Operator: [place] [address] [address] Scan Report Signed Patient: Prakash Cortes MR#: [id number] : 1970 Acct:[id number] Age/Sex: 53 / M ADM Date: 09/17/24 Loc: .ED Attending Dr: Ordering Physician: Generic ED Physician Date of Service: 09/17/24 Procedure(s): CT head/brain wo IV con Accession Number(s): [id number] cc: García Mera MD; Generic ED Physician Report Number: [id number]: Total DLP = 715.00 mGy-cm CLINICAL HISTORY: fa ll with + head strike CT head without contrast Comparison: Head CT from 05/04/2008 Findings: Gas is associated wi th right frontal scalp defect. Soft tissue swelling hematoma predominate ly in the right frontal convexity. No underlying acute frontal bone fractur e. Mild right periorbital soft tissue swelling is preseptal. No acute intracrania l hemorrhage. No midline shift or hydrocephalus. Mild volume loss is generalized and mildly greater expected for age. No large arterial territorial infarction by CT. Mild white matter lesions as can be associated with small-vessel ischemic disease. Air-fluid levels of the paranasal sinuses including partially imaged maxillary sinuses. T race mastoid effusions. IMPRESSION: 1. Soft tissue swell ing, scalp hematoma, scalp defect, including of the right frontal convex ity. No acute frontal bone fracture. 2. No acute intracra nial hemorrhage. 3. Mild volume loss is generalized and greater than expected for age. 4. Air-fluid levels of the imaged maxillary sinuses as can be associated with sinusitis. Plea se refer to separate report for CT of the face. This document has be en electronically signed by: Raji Perea MD on 09/17/2024 02:12:44 Dictated By: Teresa Perea MD Signed By: <Electronically signed by Raji Perea MD in OV> 09/17/24212 DD/ 1 TD/TT: 09/17/24211 Blown Film Extrusion Operator: CT facial bones wo con Reviewed date:09/17/2024 02:55:37 PM Interpretation: Performing Lab: Notes/Report: [address] [address] [address] Scan Report Signed Patient: Prakash Cortes MR#: [id number] : 1970 Acct:[id number] Age/Sex: 53 / M ADM Date: 09/17/24 Loc: .ED Attending Dr: Ordering Physician: Generic ED Physician Date of Service: 09/17/24 Procedure(s): CT facial bones wo IV con Accession Number(s): [id number] cc: García Mera MD; Generic ED Physician Report Number: [id number]: Total DLP = 467.00 mGy-cm CLINICAL HISTORY: fall with + head strike CT maxillofacial without contrast Comparison: Head CT from same day. Findings: Right-sided periorbital soft tissue swelling is mild and preseptal. No acute intraconal stranding within either orbit in this noncontrast study. Air-fluid levels of the bilateral maxillary sinuses with a displaced acute wall fracture. Mild medial wall fracture of the right orbit appears old. Mucosal thickening of the paranasal sinuses is multifocal. No displaced mandible fracture. No dislocation of the imaged temporomandibular joints. Trace bilateral mastoid effusions. Please refer to CT of the head for included intracranial volume loss. Please refer to CT of the cervical spine for included C6 osteophyte fracture. IMPRESSION: 1. Air-fluid levels of the maxillary sinuses as can be associated with sinusitis. 2. Right-sided periorbital soft tissue swelling appears preseptal. This document has been electronically signed by: Raji Perea MD on 09/17/2024 02:13:58 Dictated By: Raji Perea MD Signed By: <Electronically signed by Raji Perea MD in OV> 09/17/24213 DD/ 2 TD/TT: 09/17/24212 Blown Film Extrusion Operator: [place] [address] CT Scan Report Signed Patient: Prakash Cortes MR#: [id number] : 1970 Acct:[id number] Age/Sex: 53 / M ADM Date: 09/17/24 Loc: HO.ED Attending Dr: Ordering Physician: Generic ED Physician Date of Service: 09/17/24 Procedure(s): CT fac ial bones wo IV con Accession Number(s): [id number] cc: García Mera MD; Generic ED Physician Report Number: [id number]: Total DLP = 467.00 mGy-cm CLINICAL HISTORY: fa ll with + head strike CT maxillofacial wit hout contrast Comparison: Head CT from same day. Findings: Right-sided periorbi [place] soft tissue swelling is mild and preseptal. No acute intraconal stranding within either orbit in this noncontrast study. Air-fluid levels of the bilateral maxillary sinuses with a displaced acute wall fracture. Mild medial wall fracture of the right orbit appears old. Mucosal thickening o f the paranasal sinuses is multifocal. No displaced mandibl e fracture. No dislocation of the imaged temporomandibular joints. Trace bilateral mast oid effusions. Please refer to CT of the head for included intracrania l volume loss. Please refer to CT of the cervical spine for included C 6 osteophyte fracture. IMPRESSION: 1. Air-fluid levels of the maxillary sinuses as can be associated with sinusitis. 2. Right-sided periorbital soft tissue swelling appears preseptal. This document has be en electronically signed by: Raji Perea MD on 09/17/2024 02:13:58 Dictated By: Teresa Perea MD Signed By: <Electronically signed by Raji Perea MD in OV> 09/17/24213 DD/ 2 TD/TT: 09/17/24212 Blown Film Extrusion Operator: Free T4 (Free Thyroxine) (No t yet reviewed by provider) Interpretation: Performing Lab:[facility], [address] [place] [phone] Notes/Report: Free T4 (Free Thyroxine) 0.90 0.71-1.85 ng/dL UA CC w/rflx Micro + Cult (N ot yet reviewed by provider) Interpretation: Performing Lab:[facility], [address] [place] [phone] Notes/Report: [id number] Urine, Clean Catch Color Urine Yellow Appearance Urine Clear PH 5.5 5.0-9.0 Glucose Urine UA Negative Negative mg/dL Urine Blood Negative Negative Specific [place] - Urine 1.025 1.005-1.025 Urine Protein Negative Neg-Trace mg/dL Urine Ketones Trace Negative mg/dL Nitrite Urine Negative Negative Leukocyte Esterase Urine Negative Negative Reason For Referral No Information Medications Medication SIG (Take, Route, Frequency, Duration) [...] Vaccine Route Administration Date Status Comme nts DECLINED, FLU Unknown 05/30/2013 Administered Fluarix Quadrivalent IM Intramuscular 09/12/2019 Administe red Fluarix Quadrivalent IM Intramuscular 09/30/2021 Administe red SARS-COV-2 Moderna Unknown 10/11/2020 Administered SARS-COV-2 Moderna Unknown 11/08/2020 Administered SARS-COV-2 Moderna Unknown 09/03/2021 Administered Shingrix IM Intramuscular 10/03/2021 Administered Shingrix IM Intramuscular 01/06/2022 Administered Fluarix Quadrivalent IM Intramuscular 09/29/2022 Administe red Fluarix Quadrivalent - 150 IM Intramuscular 09/26/2024 Adm inistered DECLINED, FLU Unknown 07/10/2014 Refused Flu Vaccine Unknown 08/12/2015 Refused Fluarix Quadrivalent Unknown 08/18/2016 Refused Fluarix Quadrivalent Unknown 09/07/2017 Refused Fluarix Quadrivalent Unknown 09/12/2018 Refused TDaP Unknown 09/26/2020 Refused Social History Tobacco Use: Social History Observation Description Date Details (start date - stop date) Former Smoker NA - NA Tobacco Use/Smoking Question Answer Notes Patient is a former smoker How long has it been since y ou last smoked? 1-5 years Additional Findings: Tobacco Non-User Cu rrent non-smoker, currently using no form of tobacco Alcohol Screen Question Answer Notes Did you have a drink contain ing alcohol in the past year? Yes How often did you have a dri nk containing alcohol in the past year? Monthly or less (1 point) How many drinks did you have on a typical day when you were drinking in the past year? 1 or 2 drinks (0 point) How often did you have 6 or more drinks on one occasion in the past year? Never (0 point) Points 1 Interpretation Negative Problems Problem Type SNOMED Code ICD Code Onset Dates Problem Status W/U Status Risk Notes Problem 78483836 Anxiety (F41.9) Active confirmed Problem 984338056 Mixed hyperlipidemia (E78.2) Active confirmed Problem 557918690 Acquired hypothyroidism (E03.9) Active confirmed Problem 41681320 Sexual dysfuncti on (R37) Active confirmed Problem 819380070 Panic attack (F41.0) Active confirmed Vital Signs Blood pressure diastolic 60 mm Hg 09/26/2024 Height 70 in 09/26/2024 Blood pressure systolic 102 mm Hg 09/26/2024 Weight 181 lbs 09/26/2024 BMI 25.97 kg/m2 09/26/2024 Encounters Encounter Location Date Provider Diagnosis García Mera MD [address] [place] [id number] 12/06/2023 García Mera Acquired hypothyroidism E03.9 García Mera MD [address] [place] [id number] 01/06/2024 García Mera Acquired hypothyroidism E03.9 García Mera MD [address] [place] [address] [id number] 02/11/2024 García Augusteer Acquired hypothyroidism E03.9 García Mera MD [address] [place] [id number] 03/20/2024 García Augusteer Acquired hypothyroidism E03.9 García Mera MD [address] [address] [place] [address] [id number] 04/10/2024 García Augusteer Mixed hyperlipidemia E78.2 García Mera MD [address] [place] [address] [id number] 09/26/2024 García Mera Laceration of forehead, subsequent encounter S01.81XD ; Laceration of right hand without foreign body, subsequent encounter S61.411D and Encounter for administration of vaccine Z23 García Mera MD [address] [place] [address] [id number] 10/02/2024 García Mera Blood tests for routine general physical examination Z00.00 ; Mixed hyperlipidemia E78.2 and Acquired hypothyroidism E03.9 García Mera MD [address] [place] [address] [id number] 10/07/2023 García Mera Mixed hyperlipidemia E78.2 ; Annual physical exam Z00.00 ; Encounter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
--- OUTSIDE RECORDS SUMMARY | 2024-10-02 14:58 | XMS_ITS ---
Author Organization García Mera MD Address [address] [place] [address] [phone] Care Team Providers Care Rapid Transit Operator Name Role Phone García Mera Primary Care Provider REASON FOR VISIT ER Encounters Encounter Location Date Provider Diagnosis García Mera MD [address] [place] [address] [address] [place] [address] [phone] 09/17/2024 García Mera Plan Of Treatment Next Appt Details Provider Name:García Harry ier, 10/09/2024 10:30:00 AM, [address], [address], [place], [place], [phone], Progress Notes * Prakash SHEEHANDOB:[birth year] (53 yo M)Acc No.[id number]:09/17/2024 Patient:?Prakash Sheehan :1970???Age:53 Y???Sex:Male Address:[address] [place] [id number] * true * Date:? Generated for Rema schwartz/Marisel/eTransmitting on:?10/02/2024 02:58 PM EST
== END 2024-10-02 07:01 | disposition home or self-care (01) ==
LOC: HO.LNP 07:00
PROVIDERS: Visit Provider Internal Medicine
DX: Z00.00 Encounter for general adult medical examination without abnormal findings (principal); E78.2 Mixed hyperlipidemia; E03.9 Hypothyroidism, unspecified; Z12.5 Encounter for screening for malignant neoplasm of prostate
CPT/HCPCS: 80053; 80061; 81003; 84153; 84439; 84443; 85025

== ENCOUNTER 2025-01-05 10:14 | Outpatient (REF) | payer OTHER, SELFPAY ==
[2025-01-05 10:17] LABS: MANUAL DIFF FLAG NO
[2025-01-05 10:20] LABS: Basophils Percent Auto 0.8 % (0-2); Eosinophils Absolute Auto 0.2 X10*3/uL (0.0-0.4); Eosinophils Percent Auto 4.8 % (0-4); Hematocrit 38.4 % (42.0-52.0); Imm Gran Abs Auto 0.02 X10*3/uL (0.00-0.03); Imm Gran Pct Auto 0.4 % (0.0-0.4); Lymphocytes Absolute Auto 1.3 X10*3/uL (1.2-4.9); Mean Corpuscular HGB Conc 33.9 g/dl (31.0-36.0); Mean Corpuscular Hemoglobin 33.2 pg (27.0-33.0); Mean Platelet Volume 9.9 fL (9.4-12.4); Monocytes Absolute Auto 0.7 X10*3/uL (0.1-1.2); Neutrophils Absolute Auto 2.8 x10*3/uL (2.0-8.3); Platelet Count 319 X10*3/uL (160-400); Red Blood Count 3.92 X10*6/uL (4.60-5.80); Red Cell Distribution Width 12.8 % (11.0-16.0)
--- OUTSIDE RECORDS SUMMARY | 2025-01-05 11:15 | XMS_ITS ---
Author Organization García Mera MD Address [address] [place] [phone] Care Team Providers Care Home School Coordinator Name Role Phone García Mera Primary Care Provider Allergies No Known Allergies REASON FOR VISIT ANNUAL EXAM Medications Medication SIG (Take, Route, Frequency, Duration) Notes Start Date End Date Status Percocet 5-325 MG 1 tablet as needed Orally 3 times per day as needed for 30 days 10/07/2023 Not-Taking Levothyroxine Sodium 125 MCG 1 tablet in the morning on an empty stomach Orally Once a day for 30 day(s) 10/09/2024 Active oxyCODONE-Acetaminoph en 5-325 MG 1 tablet as needed Orally every 6 hrs for 30 days Partial Fill upon Patient Request 10/09/2024 Active Percocet 5-325 MG 1 tablet as needed Orally daily as needed for 5 days 04/20/2024 Active LORazepam 0.5 MG 1 tablet at bedtime as needed Orally Twice a day for 2 days 04/20/2024 Active Levothyroxine Sodium 100 MCG 1 tablet in the morning on an empty stomach Orally Once a day for 90 days 12/09/2023 Active Social History Tobacco Use: Social History Observation [...] Problem Status W/U Status Risk Notes Problem [id number] Other neutropenia (D70.8) Active confirmed Vital Signs Blood pressure systolic 118 mm Hg 10/09/19 25 Blood pressure diastolic 70 mm Hg 025 Height 70 in 10/09/2024 Weight 180 lbs 10/09/2024 BMI 25.82 kg/m2 10/09/2024 Encounters Encounter Location Date Provider Diagnosis García Mera MD [address] [place] [address] [address] [place], [place] [phone] 10/09/2024 García Mera Mixed hyperlipidemia E78.2 ; Annual physical exam Z00.00 ; Acquired hypothyroidism E03.9 ; Other neutropenia D70.8 ; Injury of left foot, subsequent encounter S99.922D ; Colon cancer screening Z12.11 and Depression screening Z13.31 Assessments Encounter Date Diagnosis (ICD Code) Assessment Notes Treatment Notes Treatment Clinical Notes Section Notes 10/09/2024 Mixed hyperlipidemia (ICD-10 - E78.2) doing well with no meds, will continue to monitor and watch diet 10/09/2024 Annual physical exam (ICD-10 - Z00.00) labs reviewed and discussed with patient 10/09/2024 Acquired hypothyroidism (ICD-10 - E03.9) need to increase thyroid to 125, patient verbalized understanding of medication and directions for use 10/09/2024 Other neutropenia (ICD-10 - D70.8) will repeat cbc when we repeat thyhroid 10/09/2024 Injury of left foot, subsequent encounter (ICD-10 - S99.922D) needs refill on oxycodone 10/09/2024 Colon cancer screening (ICD-10 - Z12.11) guaiac negative 10/09/2024 Depression screening (ICD-10 - Z13.31) negative screen 10/09/2024 Other needs referral to [facility]/ spoke with patient he is going to go [facility] walk-[facility]. Plan Of Treatment Medication Medication Name Sig Start Date Stop Date Notes Levothyroxine Sodium 125 MCG 1 tablet in the morning on an empty stomach Orally Once a day for 30 day(s) 10/09/2024 oxyCODONE-Acetaminophen 5-325 MG 1 tablet as needed Orally every 6 hrs for 30 days 10/09/2024 Partial Fill upon Patient Request Treatment Notes Assessment Notes Mixed hyperlipidemia doing well with no meds, will continue to monitor and watch diet Annual physical exam labs reviewed and d iscussed with patient Acquired hypothyroidism need to increase thyroid to 125, patient verbalized understanding of medication and directions for use Other neutropenia will repeat cbc when we repeat thyhroid Injury of left foot, subsequent encounte r needs refill on oxycodone Colon cancer screening guaiac negative Depression screening negative screen Other needs referral to [facility]/ spoke with patient he is going [facility]. Pending Test Test Name Order Date Complete Blood Count Auto Diff TSH reflex Free T4 10/09/2024 Next Appt Details Provider Name:García hood, 10/05/2025 07:30:00 AM, [address] [place] [address], [address], [place], [place], [phone], Provider Name:García hood, 10/12/2025 09:30:00 AM, [address] [place] [address], [address], [place], [place], [phone], Progress Notes * Prakash SHEEHANDOB:[birth year] (53 yo M)Acc No.[id number]:10/09/2024 Progress Notes Patient:?Prakash SHEEHAN Provider:?García Mera MD :1970???Age:53 Y???Sex:Male Jamar e:10/09/2024 Address:[address] [place], [place] [id number] Subjective: * Chief Complaints: * ???ANNUAL EXAM * HPI: ???Depression Screening:?PHQ-9?Little interest or pleasure in doing things?Not at all,?Feeling down, depressed, or hopeless?Not at all,?Trouble falling or staying asleep, or sleeping too much?Not at all,?Feeling tired or having little energy?Not at all,?Poor appetite or overeating?Not at all,?Feeling bad about yourself or that you are a failure, or have let yourself or your family down?Not at all,?Trouble concentrating on things, such as reading the newspaper or watching television?Not at all,?Moving or speaking so slowly that other people could have noticed; or the opposite, being so fidgety or restless that you have been moving around a lot more than usual?Not at all,?Thoughts that you would be better off or of hurting yourself in some way?Not at all,?Total Score?0.?Interpretation and Intervention?Depression Screening Findings?Negative,?Follow-Up for Depression?: review of PHQ-9 found negative result, no follow-up needed.?Communication Needs:?Communication Needs?Does the patient have a hearing impairment?No,?Does the patient have a vision impairment??No,?Does the patient have a cognition impairment??No.?SDOH Questions:?SDOH Questions?In the past year have you been worried about losing housing??No,?In the past year have you or any family members you live with been unable to get any of the following when it was really needed? Check all that apply:?None.?Symptom(s):? patient is a 53 yo male here for annual visit with review of recent labs and follow up of chronic issues, here for yearly physical/ left armhurts from half way down his arm to half way up bicep/ has been for at least 4 months. no tingling or numbness. * ROS:?General/Constitutional:?Patient denies?fatigue, headache.?Change in appetite?denies.?Chills?denies.?Fever?denies.?Ophthalmologic:?Blurred vision?denies.?Discharge?denies.?Pain?denies.?ENT:?Decreased hearing?denies.?Sore throat?denies.?Swollen glands?denies.?Endocrine:?Cold intolerance?denies.?Excessive thirst?denies.?Heat intolerance?denies.?Weight loss?denies.?Respiratory:?Cough?denies.?Shortness of breath at rest?denies.?Shortness of breath with exertion?denies.?Wheezing?denies.?Cardiovascular:?Chest pain at rest?denies.?Chest pain with exertion?denies.?Irregular heartbeat?denies.?Shortness of breath?denies.?Gastrointestinal:?Abdominal pain?denies.?Change in bowel habits?denies.?Diarrhea?denies.?Nausea?denies.?Rectal bleeding?denies.?Vomiting?denies .?Genitourinary:?Blood in urine?denies.?Difficulty urinating?denies.?Frequent urination?denies.?Musculoskeletal:?Patient denies?muscle aches.?Painful joints?denies.?Weakness?denies.?Peripheral Vascular:?Patient denies?red and blue toes.?Skin:?Dry skin?denies.?Itching?denies.?Denies?Mole(s),? changes in moles, new moles or any lesions of concern.?Denies?Photosensitivity.?Rash?denies.?Neurologic:?Dizziness?denies.?Fainting?denies.?Headache?denies.? * Medical History:? * Surgical History:? * Hospitalization/Major Diagno stic Procedure:? * Family History:?Father: isabella e 69 yrs.?Mother: 69 yrs, a, alcohol abuse.?Daughter(s): 31 yrs.?1 daughter(s) . .? Denies mental health/substance abuse family history, Denies mental health/substance abuse family history, Denies mental health/substance abuse family history. * Social History:?Tobacco Use:?Tobacco Use/Smoking?Patient is a?former smoker,?How long has it been since you last smoked??1-5 years,?Additional Findings: Tobacco Non-User?Current non-smoker, currently using no form of tobacco.?Drugs/Alcohol:?Alcohol Screen?Did you have a drink containing alcohol in the past year??Yes,?How often did you have a drink containing alcohol in the past year??Monthly or less (1 point),?How many drinks did you have on a typical day when you were drinking in the past year??1 or 2 drinks (0 point),?How often did you have 6 or more drinks on one occasion in the past year??Never (0 point),?Points?1,?Interpretation?Negative.?Miscellaneous:?Caffeine: yes, frequency:, 1-2 cups per day. Children: yes. Community involvements: no. Exercise: yes, rides a bike 20 minutes 5 times aweek. Housing: owning. Living with: spouse and daughter. Marital status: . Occupation: unemployed. Pets: dog x1. Travel outside of the [place]: no. * Medications:?TakingLevothyro xine Sodium 100 MCG Tablet 1 tablet in the morning on an empty stomach Orally Once a day LORazepam 0.5 MG Tablet 1 tablet at bedtime as needed Orally Twice a day Percocet 5-325 MG Tablet 1 tablet as needed Orally daily as needed Taking Levothyroxine Sodium 100 MCG Tablet 1 tablet in the morning on an empty stomach Orally Once a day Taking LORazepam 0.5 MG Tablet 1 tablet at bedtime as needed Orally Twice a day Taking Percocet 5-325 MG Tablet 1 tablet as needed Orally daily as needed Not-Taking/PRNPercocet 5-325 MG Tablet 1 tablet as needed Orally 3 times per day as needed Medication List reviewed and reconciled with the patientNot-Taking/PRN Percocet 5-325 MG Tablet 1 tablet as needed Orally 3 times per day as needed Medication List reviewed and reconciled with the patient * Allergies:?N.K.D.A.yes[Aller gies Verified] Objective: * Vitals:?Ht: 70, Wt: 180, BMI :25.82, BP:118/70, Wt-k.65. * ???Past Orders: ???Lab:Comprehensive [place]. P kasia Fast (Order Date - 10/02/2024) (Collection Date & Time - 10/02/2024 07:00 AM) ? Value Reference Range ?Sodium 140 135-145 - mmo l/L ?Bilirubin Total 0.2 0.0- 1.0 - mg/dL ?Aspartate Amino Transferase 28 5-37 - U/L ?Alanine Aminotransferase 26 0-40 - U/L ?Total Protein 7.2 6.5-8. 0 - g/dL ?Albumin Level 4.2 3.5-5. 0 - g/dL ?Alkaline Phosphatase 107 39-117 - U/L ?Potassium 4.4 3.3-5.1 - mmol/L ?Chloride 111 H 96-108 - mm ol/L ?Carbon Dioxide 24 22-29 - mmol/L ?Anion Gap 9 L 12-20 - ?Blood Urea Nitrogen 14 9-16 - mg/dL ?Creatinine 0.96 0.5-1.4 - mg/dL ?Estimated Glomerular Filt Rate > 60 - ?Glucose Fasting 84 60-9 9 - mg/dL ?Calcium 9.6 8.4-10.2 - m g/dL ???Lab:Lipid Panel (Order Da te - 10/02/2024) (Collection Date & Time - 10/02/2024 07:00 AM) ? Value Reference Range ?Triglycerides 127 <150 - mg/dL ?Cholesterol 212 H <200 - m g/dL ?LDL Cholesterol Calculated 125 H <100 - mg/dL ?HDL Cholesterol 62 >40 - mg/dL ???Lab:PSA,Total (Free>4and< 10) (Order Date - 10/02/2024) (Collection Date & Time - 10/02/2024 07:00 AM) ? Value Reference Range ?PSA,Total (Free>4and<10) 0.43 0.00-4.00 - ng/mL ???Lab:TSH reflex Free T4 (O rder Date - 10/02/2024) (Collection Date & Time - 10/02/2024 07:00 AM) ? Value Reference Range ?TSH reflex Free T4 5.36 H 0 .32-4.0 - uIU/mL ???Lab:Free T4 (Free Thyroxi ne) (Order Date - 10/02/2024) (Collection Date & Time - 10/02/2024 07:00 AM) ? Value Reference Range ?Free T4 (Free Thyroxine) 0.90 0.71-1.85 - ng/dL ???Lab:Complete Blood Count Auto Diff (Order Date - 10/02/2024) (Collection Date & Time - 10/02/2024 07:00 AM) ? Value Reference Range ?White Blood Count 3.9 L 4. 8-10.8 - X10*3/uL ?Red Blood Count 3.71 L 4.60 -5.80 - X10*6/uL ?Hemoglobin 12.4 L 14.0-18.0 - g/dl ?Hematocrit 37.3 L 42.0-52.0 - % ?Mean Corpuscular Volume 100.5 H 80.0-98.0 - fL ?Mean Corpuscular Hemoglobin 33.4 H 27.0-33.0 - pg ?Mean Corpuscular HGB Conc 33.2 31.0-36.0 - g/dl ?Red Cell Distribution Width 13.4 11.0-16.0 - % ?Platelet Count 361 160-4 00 - X10*3/uL ?Mean Platelet Volume 10.1 9.4-12.4 - fL ?Neutrophils Percent Auto 46.1 45-73 - % ?Imm Gran Pct Auto 0.3 0. 0-0.4 - % ?Lymphocytes Percent Auto 33.5 20-40 - % ?Monocytes Percent Auto 11.9 H 2-11 - % ?Eosinophils Percent Auto 7.2 H 0-4 - % ?Basophils Percent Auto 1.0 0-2 - % ?NRBC Pct Auto 0.0 0.0-0. 2 - /100WBC ?Neutrophils Absolute Auto 1.8 L 2.0-8.3 - x10*3/uL ?Imm Gran Abs Auto 0.01 0. 00-0.03 - X10*3/uL ?Lymphocytes Absolute Auto 1.3 1.2-4.9 - X10*3/uL ?Monocytes Absolute Auto 0.5 0.1-1.2 - X10*3/uL ?Eosinophils Absolute Auto 0.3 0.0-0.4 - X10*3/uL ?Basophils Absolute Auto 0.0 0.0-0.2 - X10*3/uL ?NRBC Abs Auto 0.000 0.0-0. 012 - X10*3/uL * Examination: ???General Examination: ?GENERAL APPEARANCE:?well developed, well nourished, in no acute distress.?HEAD:?normocephalic, atraumatic.?EYES:?pupils equal, round, reactive to light and accommodation, sclera non-icteric.?EARS:?normal.?ORAL CAVITY:?mucosa moist.?THROAT:?clear.?NECK/THYROID:?neck supple, full range of motion, no cervical lymphadenopathy, no bruits.?SKIN:?warm and dry, no suspicious lesions.?HEART:?regular rate and rhythm, S1, S2 normal, no murmurs.?LUNGS:?clear to auscultation bilaterally.?ABDOMEN:?soft, nontender, nondistended, bowel sounds present, normal, no organomegaly , no masses palpable.?RECTAL EXAM:?normal tone, no external hemorrhoids, no masses palpable, prostate normal, stool guaiac negative.?MALE GENITOURINARY:?testes descended bilaterally, no testicular mass.?EXTREMITIES:?no clubbing, cyanosis, or edema, abnormal biceps and triceps are tender elbow is not.?NEUROLOGIC:?nonfocal, motor strength normal upper and lower extremities, sensory exam intact.? Assessment: * Assessment: 1.?Annual physical exam - Z0 0.00 (Primary)???2.?Mixed hyperlipidemia - E78.2???3.?Acquired hypothyroidism - E03.9???4.?Other neutropenia - D70.8???5.?Injury of left foot, subsequent encounter - S99.922D?? 6.?Colon cancer screening - Z12.11???7.?Depression screening - Z13.31??? Plan: * Treatment: 2.?Mixed hyperlipidemia? Start oxyCODONE-Acetaminophen Tablet, 5-325 MG, 1 tablet as needed, Orally, every 6 hrs, 30 days, 30, Refills 0, Notes to Pharmacist: Partial Fill upon Patient Request.?LAB: Complete Blood Count Auto Diff (Ordered for 01/06/2025) ?LAB: TSH reflex Free T4 (Ordered for 01/06/2025) Notes: doing well with no meds, will continue to monitor and watch diet?? 3.?Acquired hypothyroidism? Start Levothyroxine Sodium Tablet, 125 MCG, 1 tablet in the morning on an empty stomach, Orally, Once a day, 30 day(s), 30.?LAB: TSH reflex Free T4 (Ordered for 01/06/2025) Notes: need to increase thyroid to 125, patient verbalized understanding of medication and directions for use?? 4.?Other neutropenia?LAB: Complete Blood Count Auto Diff (Ordered for 01/06/2025) Notes: will repeat cbc when we repeat thyhroid?? 5.?Injury of left foot, subs equent encounter? Notes: needs refill on oxycodone?? 6.?Colon cancer screening? Notes: guaiac negative?? 7.?Depression screening? Notes: negative screen?? 8.?Others? Notes: needs referral to [facility]/ spoke with patient [facility] is [facility].?? * Procedure Codes:? * * Sign off status: Completed true * Provider:?García Mera MD Date:?0 10/09/2024 Generated for Rema schwartz/Marisel/eTransmitting on:?01/05/2025 11:15 AM EDT History and Physical Notes * HPI (History of Present Illness) Category Sub-Category Detail Notes Category Not es Symptom(s) patient is a 53 yo male here for annual visit with review of recent labs and follow up of chronic issues, here for yearly physical/ left armhurts from half way down his arm to half way up bicep/ has been for at least 4 months. no tingling or numbness Depression Screening PHQ-9 Little inte rest or pleasure in doing things: Not at all Feeling down, depressed, or hopeless: No t at all Trouble falling or staying asleep, or sl eeping too much: Not at all Feeling tired or having little energy: N ot at all Poor appetite or overeating: Not at all Feeling bad about yourself o r that you are a failure, or have let yourself or your family down: Not at all Trouble concentrating on thi ngs, such as reading the newspaper or watching television: Not at all Moving or speaking so slowly that other people could have noticed; or the opposite, being so fidgety or restless that you have been moving around a lot more than usual: Not at all Thoughts that you would be b ian off or of hurting yourself in some way: Not at all Total Score: 0 Interpretation and Intervention Depression Nicole reynolds Findings: Negative Follow-Up for Depression: : review of PH Q-9 found negative result, no follow-up needed SDOH Questions SDOH Questions In the past year have you been worried about losing housing?: No In the past year have you or any family members you live with been unable to get any of the following when it was really needed? Check all that apply:: None Communication Needs Communication Needs Does the patient have a hearing impairment: No Does the patient have a vision impairmen t?: No Does the patient have a cognition impair ment?: No Examination Category Sub-Category Detail Notes Category Not es General Examination GENERAL APPEARANCE: well dev eloped, well nourished, in no acute distress HEAD: normocephalic, atrau matic EYES: pupils equal, round, reactive to light and accommodation, sclera non-icteric EARS: normal THROAT: clear NECK/THYROID: neck supple, full ra nge of motion, no cervical lymphadenopathy, no bruits HEART: regular rate and rhy thm, S1, S2 normal, no murmurs LUNGS: clear to auscultatio n bilaterally ABDOMEN: soft, nontender, non distended, bowel sounds present, normal, no organomegaly , no masses palpable NEUROLOGIC: nonfocal, motor stre ngth normal upper and lower extremities, sensory exam intact SKIN: warm and dry, no jasper picious lesions EXTREMITIES: no clubbing, cyanosi s, or edema, abnormal biceps and triceps are tender elbow is not MALE GENITOURINARY: testes descended edel aterally, no testicular mass RECTAL EXAM: normal tone, no exte rnal hemorrhoids, no masses palpable, prostate normal, stool guaiac negative ORAL CAVITY: mucosa moist
--- OUTSIDE RECORDS SUMMARY | 2025-01-05 11:15 | XMS_ITS ---
Author Organization García Mera MD Address [address] [place] [phone] Care Team Providers Care Silviculturist Name Role Phone García Mera Primary Care Provider REASON FOR VISIT Levothyroxine Medications Medication SIG (Take, Route, Frequency, Duration) Notes Start Date End Date Status Levothyroxine Sodium 125 MCG 1 tablet in the morning on an empty stomach Orally Once a day for 90 days 10/10/2024 Active Encounters Encounter Location Date Provider Diagnosis García Mera MD [address] [place] [address] [place] [phone] 10/10/2024 García Mera Plan Of Treatment Medication Medication Name Sig Start Date Stop Date Notes Levothyroxine Sodium 125 MCG 1 tablet in the morning on an empty stomach Orally Once a day for 90 days 10/10/2024 Next Appt Details Provider Name:García hood, 10/05/2025 07:30:00 AM, [address] [place] [address], [phone], Provider Name:García hood, 10/12/2025 09:30:00 AM, [address] [place] [address], [address], [phone], Progress Notes * Prakash SHEEHANDOB:[birth year] (53 yo M)Acc No.[id number]:10/10/2024 Patient:?Prakash SHEEHAN :1970???Age:53 Y???Sex:Male Address:[address] [place] [id number] * Refills? Start Levothyroxine Sodium Tablet, 125 MCG, Orally, 90 Tablet, 1 tablet in the morning on an empty stomach, Once a day, 90 days, Refills=3 * true * Date:? Generated for Rema schwartz/Marisel/Lencho on:?01/05/2025 11:15 AM EDT
--- OUTSIDE RECORDS SUMMARY | 2025-01-05 11:16 | XMS_ITS ---
Author Organization García Mera MD Address [address] [place], [place] [phone] Care Team Providers Care Flap Lining Binder Name Role Phone García Mera Primary Care Provider [phone] Results Component Value Reference Range Notes Complete Blood Count Auto Di ff (Not yet reviewed by provider) Interpretation: Performing Lab:[facility], [address] [place] [phone] Notes/Report: White Blood Count 5.0 4.8-10.8 X10*3/uL Red Blood Count 3.92 4.60-5.80 X10*6/uL Hemoglobin 13.0 14.0-18.0 g/dl Hematocrit 38.4 42.0-52.0 % Mean Corpuscular Volume 98.0 80.0-98.0 fL Mean Corpuscular Hemoglobin 33.2 27.0-33.0 pg Mean Corpuscular HGB Conc 33.9 31.0-36.0 g/dl Red Cell Distribution Width 12.8 11.0-16.0 % Platelet Count 319 160-400 X10*3/uL Mean Platelet Volume 9.9 9.4-12.4 fL Neutrophils Percent Auto 55.0 45-73 % Imm Gran Pct Auto 0.4 0.0-0.4 % Lymphocytes Percent Auto 26.0 20-40 % Monocytes Percent Auto 13.0 2-11 % Eosinophils Percent Auto 4.8 0-4 % Basophils Percent Auto 0.8 0-2 % NRBC Pct Auto 0.0 0.0-0.2 /100WBC Neutrophils Absolute Auto 2.8 2.0-8.3 x10*3/u L Imm Gran Abs Auto 0.02 0.00-0.03 X10*3/uL Lymphocytes Absolute Auto 1.3 1.2-4.9 X10*3/u L Monocytes Absolute Auto 0.7 0.1-1.2 X10*3/uL Eosinophils Absolute Auto 0.2 0.0-0.4 X10*3/u L Basophils Absolute Auto 0.0 0.0-0.2 X10*3/uL NRBC Abs Auto 0.000 0.0-0.012 X10*3/uL TSH reflex Free T4 (Not yet reviewed by provider) Interpretation: Performing Lab:[facility], [address] [place] [phone] Notes/Report: TSH reflex Free T4 4.50 0.32-4.0 uIU/mL REASON FOR VISIT CBC TSH Encounters Encounter Location Date Provider Diagnosis García Mera MD [address] [place] [phone] 01/05/2025 García Mera Acquired hypothyroidism E03.9 ; Other neutropenia D70.8 and Mixed hyperlipidemia E78.2 Assessments Encounter Date Diagnosis (ICD Code) Assessment Notes Treatment Notes Treatment Clinical Notes Section Notes 01/05/2025 Acquired hypothyroidism (ICD-10 - E03.9) 01/05/2025 Other neutropenia (ICD-10 - D70.8) 01/05/2025 Mixed hyperlipidemia (ICD-10 - E78.2) Plan Of Treatment Pending Test Test Name Order Date Complete Blood Count Auto Diff TSH reflex Free T4 01/05/2025 Next Appt Details Provider Name:García ohod, 10/05/2025 07:30:00 AM, [address] [place] [address], [place] [address], [place], [place], [phone], Provider Name:García hood, 10/12/2025 09:30:00 AM, [address] [place] [address], [address], [phone], Progress Notes * Prakash SHEEHANDOB:[birth year] (54 yo M)Acc No.[id number]:01/05/2025 Progress Note Patient:?Prakash SHEEHAN Provider:?García Mera MD :1970???Age:54 Y???Sex:Male Jamar e:01/05/2025 Address:[address] [place] [address] [id number] Subjective: * Chief Complaints: * ???1. CBC TSH. * Medical History:? Objective: * Vitals:? Assessment: * Assessment: 1.?Acquired hypothyroidism - E03.9 (Primary)???2.?Other neutropenia - D70.8???3.?Mixed hyperlipidemia - E78.2??? Plan: * Treatment: 2.?Mixed hyperlipidemia?LAB: Complete Blood Count Auto Diff (Collection Date & Time - 01/05/2025 08:00 AM) ?LAB: TSH reflex Free T4 (Collection Date & Time - 01/05/2025 08:00 AM) * Procedure Codes:?80546 VENIP UNCT, ROUTINE* * * The named appointment provid er may or may not be the originator of this progress note, and it is not deemed complete until electronically signed by the appointment provider. Sign off status: Pending * Provider:?García Mera MD Date:?0 01/05/2025 Generated for Rema schwartz/Marisel/Harrietitting on:?01/05/2025 11:15 AM EDT
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
[2025-01-05 11:35] LABS: Free T4 (Free Thyroxine) 1.08 ng/dL (0.71-1.85)
== END 2025-01-05 10:15 | disposition home or self-care (01) ==
LOC: HO.LNP 10:14
PROVIDERS: Visit Provider Internal Medicine
DX: E78.2 Mixed hyperlipidemia (principal); E03.9 Hypothyroidism, unspecified
CPT/HCPCS: 84439; 84443; 85025

== ENCOUNTER 2025-02-01 10:53 | Outpatient (REF) | payer OTHER, SELFPAY ==
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
[2025-02-01 12:44] LABS: Erythrocyte Sedimentation Rate 7 MM/HR (0-15)
[2025-02-02 21:44] LABS: A. Phagocytphilium DNA,RT-PCR NOT DETECTED (NOT DETECTED); Babesia Microti DNA, RT-PCR NOT DETECTED (NOT DETECTED); Borrelia Miyamotoi,DNA RT-PCR NOT DETECTED (NOT DETECTED); E.Chaffeensis DNA RT-PCR NOT DETECTED (NOT DETECTED); Lyme(Borrelia ssp)DNA RT-PCR NOT DETECTED (NOT DETECTED)
== END 2025-02-01 10:54 | disposition home or self-care (01) ==
LOC: HO.LNP 10:53
PROVIDERS: Visit Provider Internal Medicine
DX: M25.519 Pain in unspecified shoulder (principal)
CPT/HCPCS: 85652; 86618; 86666; 86753; 87468; 87469; 87478; 87484; 87798

== ENCOUNTER 2025-02-05 10:22 | Outpatient (REF) | payer OTHER, SELFPAY ==
[2025-02-05 11:10] LABS: TSH reflex Free T4 0.56 uIU/mL (0.32-4.0)
--- OUTSIDE RECORDS SUMMARY | 2025-02-05 11:22 | XMS_ITS ---
Author Organization García Mera MD Address [address] [place] [phone] Care Team Providers Care Machine Sign Writer Name Role Phone García Mrea Primary Care Provider Results Component Value Reference Range Notes TSH reflex Free T4 (Not yet reviewed by provider) Interpretation: Performing Lab:[facility], [address] [place] [phone] Notes/Report: TSH reflex Free T4 0.56 0.32-4.0 uIU/mL REASON FOR VISIT repeat 2 month TSH Encounters Encounter Location Date Provider Diagnosis García Mera MD [address] [place] [address] [place] [phone] 02/05/2025 García Mera Acquired hypothyroidism E03.9 Assessments Encounter Date Diagnosis (ICD Code) Assessment Notes Treatment Notes Treatment Clinical Notes Section Notes 02/05/2025 Acquired hypothyroidism (ICD-10 - E03.9) Plan Of Treatment Pending Test Test Name Order Date TSH reflex Free T4 02/05/2025 Next Appt Details Provider Name:García hood, 03/02/2025 10:45:00 AM, [address] [place] [address], [address], [phone], Provider Name:García hood, 10/05/2025 07:30:00 AM, [address] [place] [address], [phone], Provider Name:García hood, 10/12/2025 09:30:00 AM, [address] [place] [address], [phone], Progress Notes * Prakash SHEEHANDOB:[birth year] (54 yo M)Acc No.[id number]:02/05/2025 Progress Note Patient:?Prakash SHEEHAN Provider:?García Mera MD :1970???Age:54 Y???Sex:Male Jamar e:02/05/2025 Address:[address] [place] [address] Subjective: * Chief Complaints: * ???1. repeat 2 month TSH. * Medical History:? Objective: * Vitals:? Assessment: * Assessment: 1.?Acquired hypothyroidism - E03.9 (Primary)??? Plan: * Treatment: * Procedure Codes:?72231 VENIP UNCT, ROUTINE* * * The named appointment provid er may or may not be the originator of this progress note, and it is not deemed complete until electronically signed by the appointment provider. Sign off status: Pending * Provider:?García Mera MD Date:?0 02/05/2025 Generated for Rema schwartz/Marisel/eTransmitting on:?02/05/2025 11:22 AM EDT
== END 2025-02-05 10:23 | disposition home or self-care (01) ==
LOC: HO.LNP 10:22
PROVIDERS: Visit Provider Internal Medicine
DX: E03.9 Hypothyroidism, unspecified (principal)
CPT/HCPCS: 84443